=== PATIENT | male | born 1965 | race Caucasian/White ===

== ENCOUNTER → 2021-01-15 | Day surgery (SDC) | payer OTHER | END | disposition home or self-care (01) | LOC: JRADIR 09:37 | PROVIDERS: ATTEND Otolaryngology Facial Plastic Surgery | PROC: 0G9G3ZX Drainage of Left Thyroid Gland Lobe, Percutaneous Approach, Diagnostic (ICD-10-PCS; principal; 2021-01-15) | DX: D44.0 Neoplasm of uncertain behavior of thyroid gland (principal) | CPT/HCPCS: 10005; 76942; 88173; 88305-TC ==